=== PATIENT | female | born 1980 | race American Indian/Alaskan Native ===

== ENCOUNTER 2017-06-23 11:02 | Inpatient (IN) | payer OTHER ==
[2017-06-23] MEDS ORDERED: BICITRA PO ONE (13:58)
[2017-06-23] MEDS ORDERED: PEPCID IV ONE (13:58)
[2017-06-23] MEDS ORDERED: REGLAN IV ONE (13:58)
[2017-06-23] MEDS ORDERED: PITOCin/NS 20 UNIT/1000ML DRIP 20 UNITS/1,000 ML BAG IV SCH ×2 (14:00→17:00)
[2017-06-23] MEDS ORDERED: ANCEF/STERILE WATER 2 GM/20 ML 2 GM/20 ML SYRINGE IV NR (14:00)
--- NOTE | 2017-06-23 14:08 | History and Physical Report ---
History of Present Illness Date of examination: 06/23/17 Date of admission: 06/23/17 Chief complaint: 36 yo [id number] who walks in and says she may be in labor and she had care at "[facility]", possibly near [facility] [place] [place]. Her due date was yesterday and she has had an initial c/s for an abruption and a subsequent . No known problems, labs not available so will redraw as she is ambrosio and 4 cm dilated and appears to be in active labor at term. History of present illness: 36 yo [id number] who walks in and says she may be in labor and she had care at "[facility]", possibly near [facility] [place] [place] or at [place]. Her due date was yesterday and she has had an initial c/s for an abruption and that baby did not survive, she then had a subsequent successful . No known problems , labs not available so will redraw. She is ambrosio regularly and was 4 cm and 100% dilated and appears to be in active labor at term. She agrees to repeat c/s, however she may deliver before we can do that. OB HX G1 c/s at term for abruption, baby born alive but did not survive G2 at term, baby did well in 2006 (11 years ago) G3 this preg--term by palpation. Patient is a little difficult to communicate with and is not very forthcoming with answers but does answer some questions about medical hx and denies any problems. However, she has a hx of a abruption with and has some elevated BP here already. Past History Past Medical History: no pertinent history (she denies hypertension but is having elevated pressures and had a prior abruption). denies: heart disease, hypertension, renal disease, hepatitis, lung disease Past Surgical History: section STOREROOM CLERK History: denies: hepatitis B, HIV Family/Genetic History: none Social history: no significant social history - Obstetrical History Expected Date of Delivery: 06/22/17 Actual Gestation: 40 Week(s) 1 Day(s) : 3 Para: 2 Number of Pregnancies: 1 Number of Living Children: 1 Medications and Allergies Allergies Allergy/AdvReac Type Severity Reaction Status Date / Time No Known Allergies Allergy Unverified 06/23/17 12:22 Home Medications Medication Instructions Recorded Confirmed Last Taken Type Ferrous Gluconate [Iron 256 MG tab] 256 mg PO QDAY 06/23/17 06/23/17 06/22/17 14 :00 History Ibuprofen [Motrin 800 MG tab] 800 mg PO Q8HR PRN #30 tablet 06/23/17 Unknown Rx Lidocain2.5%/Prilocai2.5% [Emla] 5 gm TP 1XW #1 tube 06/23/17 Unknown Rx Pnv No.103/Folic/Om3s/Fish Oil 1 each PO QDAY 06/23/17 06/23/17 06/22/17 14:00 History [ Gummies] oxyCODONE /ACETAMINOPHEN [Percocet 1 - 2 tab PO Q4HR PRN #30 tab 06/23/17 Unknown Rx 5/325 mg] Active Meds: Active Medications Cefazolin Sodium (Ancef/Sterile Water 2 Gm/20 Ml) 2 gm in 20 mls @ 80 mls/hr IV PREOP NR PRN Reason: Protocol Stop: 06/23/17 23:59 Lactated Ringer's (Lactated Ringers) 1,000 mls @ 2,250 mls/hr IV PREOP JOANNA Stop: 06/24/17 14:27 Oxytocin/Sodium Chloride (Pitocin/Ns 20 Unit/1000ml Drip) 20 units in 1,000 mls @ 0 mls/hr IV TITR JOANNA PRN Reason: As Directed Review of Systems All systems: negative - Vital Signs Vital signs: Vital Signs Pulse Pulse Ox 124 H 98 06/23/17 11:28 06/23/17 11:28 Temp Pulse Resp BP Pulse Ox 98.4 F 110 H 18 142/85 92 06/23/17 12:23 06/23/17 14:07 06/23/17 12:23 06/23/17 12:23 06/23/17 14:07 - Physical Exam Breasts: Positive: deferred Cardiovascular: Regular rate Lungs: Positive: Clear to auscultation Abdomen: Positive: normal appearance (vertical skin incision), soft (term gravid uterus) Extremities: Positive: normal Deep Tendon Reflex Grade: Normal +2 - Obstetrical FHR: category 2 (some variable decelerations with contractions) Uterine Contraction Monitor Mode: External Uterine Contraction Pattern: Regular Uterine Contraction Intensity: Moderate Results Result Diagrams: 06/23/17 14:20 All other labs normal. Assessment and Plan - Patient Problems (1) Active labor at term Current Visit: Yes Status: Acute (2) Previous section Current Visit: Yes Status: Acute Plan to address problem: Repeat section
[2017-06-23] MEDS: LACTATED RINGERS 1,000 ML IV SCH ×2 (14:30→15:15)
[2017-06-23 14:49] LABS: Basophils % (Auto) 0.2 % (0.0-1.8); Hematocrit 35.1 % (30.3-42.9); Hemoglobin 10.8 gm/dl (10.1-14.3); Lymphocytes # (Auto) 0.9 K/mm3 (1.2-5.4); Lymphocytes % (Auto) 7.7 % (13.4-35.0); Mean Corpuscular HGB Conc 31 % (30-34); Mean Corpuscular Volume 76 fl (79-97); Monocytes # (Auto) 0.6 K/mm3 (0.0-0.8); Monocytes % (Auto) 4.7 % (0.0-7.3); Platelet Count 232 K/mm3 (140-440); Red Blood Count 4.63 M/mm3 (3.65-5.03); Red Cell Distribution Width 16.3 % (13.2-15.2)
[2017-06-23 14:52] LABS: Mean Corpuscular Hemoglobin 23 pg (28-32)
[2017-06-23] MEDS ORDERED: DEMEROL ONE (15:35)
[2017-06-23] MEDS ORDERED: ePHEDrine SULFATE ONE (15:53)
[2017-06-23 15:55] LABS: Bacteria,Urine 1+ /HPF (Negative); Bilirubin,Urine NEG (Negative); Blood,Urine SM (Negative); Color,Urine Yellow (Yellow); Mucus,Urine 2+ /HPF; Nitrite,Urine NEG (Negative); Urobilinogen,Urine < 2.0 mg/dL (<2.0)
[2017-06-23 16:13] LABS: Amphetamine Screen,Urine PRESUMPTIVE NEGATIVE; Benzodiazepines Screen,Urine PRESUMPTIVE NEGATIVE; Cannabinoid Screen,Urine PRESUMPTIVE NEGATIVE; Cocaine Screen,Urine PRESUMPTIVE NEGATIVE; Methadone Screen,Urine PRESUMPTIVE NEGATIVE; Opiate Screen,Urine PRESUMPTIVE NEGATIVE
[2017-06-23] MEDS ORDERED: ZOFRAN ONE (16:15)
[2017-06-23] MEDS ORDERED: NEO SYNEPHRINE/NS Syringe(OR USE) IV ONE (16:17)
[2017-06-23] MEDS ORDERED: VERSED ONE (16:27)
[2017-06-23] MEDS ORDERED: NACL 0.9% IR ONE (16:29)
[2017-06-23] MEDS ORDERED: WATER FOR IRRIG STERILE IR ONE (16:30)
--- NOTE | 2017-06-23 16:54 | Operative Report ---
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 History of a previous abruption term and a C- section for that and a subsequent successful this , delivered 11 years ago Post-operative diagnosis: Same Surgeon: Erin Pisano M.D. Funeral Location Manager: GRADY Anesthesia: Spinal EBL: 700 mL Infant: 7#8oz (3391g) male Apgars 8 and 9 Time of : 1559 Findings Normal tubes, uterus and ovaries with the bladder adherent up high on the lower uterine segment Procedure The patient was taken to the operating room and after adequate anesthesia was obtained she was placed in the supine position in left lateral tilt. Sequential compression devices were in place on both lower extremities and a Anderson catheter was placed in a sterile fashion. The abdomen was then prepped and draped in the usual fashion. Surgical time-out was done with the entire OR team attentive. A vertical incision was made through the old vertical skin incision with a scalpel and sharp dissection was carried down through all layers of the abdomen in the usual fashion. The abdomen was entered bluntly and the lower uterine segment was identified. The presenting part was palpated and a bladder flap was created with the Metzenbaum scissors. The scalpel was used to incise the uterus in a transverse fashion and this incision was extended bluntly with finger traction and the membranes were ruptured. My hand was inserted into the uterus. The vertex was grasped, rotated to an OA presentation and delivered with a combination of traction and fundal pressure. The cord was clamped and cut and a viable was suctioned and handed off to the attending NICU staff and was a 7#8oz (3391g) male Apgars 8 and 9. The placenta was removed manually, the interior of the uterus was cleansed with moist lap packs and the uterus was exteriorized. The uterine incision was closed with a double imbricating layer of 0 Vicryl suture in a running fashion. Hemostasis was adequate and the uterus was returned to the abdomen. Uterus was well contracted. The abdomen was then closed in layers: the fascia was closed with running sutures of 0 Vicryl starting at both ends in turn and tied together in the midline. The subcutaneous tissue was irrigated and then closed with several interrupted sutures of 2-0 vicryl and 3-0 vicryl and the skin was closed with a running subcuticular suture of 4-0 Vicryl. Sponge and Lap count correct X 3, estimated blood loss was 700 mL and the Anderson was draining clear urine. The patient tolerated the procedure well and was discharged to PACU in good condition.
[2017-06-23] MEDS ORDERED: MILK OF MAGNESIA PO PRN (16:56)
[2017-06-23] MEDS ORDERED: TORADOL IV PRN (16:56)
[2017-06-23] MEDS ORDERED: TYLENOL PO PRN (16:56)
[2017-06-23] MEDS ORDERED: MORPHINE IV PRN ×2 (16:56→17:07)
[2017-06-23] MEDS ORDERED: TUCKS PAD TP PRN (16:56)
[2017-06-23] MEDS ORDERED: ZOFRAN IV PRN (16:56)
[2017-06-23] MEDS ORDERED: NARCAN 0.4 MG/1 ML IV PRN (16:56)
[2017-06-23] MEDS ORDERED: LANSINOH TP PRN (16:56)
[2017-06-23] MEDS ORDERED: LACTATED RINGERS 1,000 ML ONE (16:57)
[2017-06-23] MEDS ORDERED: SODIUM CHLORIDE FLUSH SYRINGE 10 ML IV NR (17:00)
[2017-06-23] MEDS ORDERED: D5LR 1,000 ML IV SCH (17:00)
--- NOTE | 2017-06-23 17:13 | Post Anesthesia Evaluation ---
- Post Anesthesia Evaluation Patient Participated: Yes Airway Patent: Yes Stable Respiratory Function: Yes Nausea/Vomiting: No Temp > 96.8F: Yes Pain Manageable: Yes Adequeate Hydration: Yes Anesthesia Complications: No Block Receding Appropriately: Yes Patient on Ventilator: No
--- NOTE | 2017-06-23 17:13 | Anesthesia Consultation ---
Anesthesia Consult and Med Hx Date of service: 06/23/17 - Airway Anesthetic Teeth Evaluation: Good ROM Head & Neck: Adequate Mental/Hyoid Distance: Adequate Mallampati Class: Class II Intubation Access Assessment: Probably Good - Pulmonary Exam CTA: Yes - Cardiac Exam Cardiac Exam: RRR - Pre-Operative Health Status ASA Pre-Surgery Classification: ASA2 Proposed Anesthetic Plan: Spinal - Pulmonary Hx Asthma: No COPD: No Hx Pneumonia: No - Cardiovascular System Hx Hypertension: No - Central Nervous System Hx Seizures: No Hx Psychiatric Problems: No - Endocrine Hx Renal Disease: No Hx End Stage Renal Disease: No Hx Hypothyroidism: No Hx Hyperthyroidism: No - Hematic Hx Anemia: No Hx Sickle Cell Disease: No - Other Systems Hx Alcohol Use: No
--- NOTE | 2017-06-23 17:13 | Anesthesia Day of Surgery ---
Anesthesia Day of Surgery - Day of Surgery Patient Examined: Yes Patient H&P Reviewed: Yes Patient is NPO: Yes
[2017-06-23] MEDS ORDERED: ANCEF/NS 1 GM/50 ML 1 GM/50 ML BAG IV SCH (23:00)
[2017-06-23] MEDS ORDERED: ceFAZolin 1 GM in NACL 0.9% 20 ML IV SCH (23:00)
[2017-06-24 05:32] LABS: Hematocrit 28.4 % (30.3-42.9); Hemoglobin 9.2 gm/dl (10.1-14.3)
[2017-06-24] MEDS ORDERED: BOOSTRIX IM ONE (06:00)
[2017-06-24] MEDS ORDERED: ceFAZolin 1 GM in NACL 0.9% 20 ML IV ONE (08:30)
[2017-06-24] MEDS: PERCOCET 5/325 PO PRN ×2 (08:45→18:21)
[2017-06-24] MEDS: MOTRIN PO PRN ×2 (08:48→18:22)
[2017-06-24] MEDS ORDERED: Fluarix Quad 2017-2018(36 MOS+ IM ONE (12:00)
--- NOTE | 2017-06-24 17:15 | Progress Note ---
Assessment and Plan - Patient Problems (1) delivery delivered Current Visit: Yes Status: Acute Plan to address problem: nl po course, min lochia (2) Active labor at term Current Visit: Yes Status: Acute (3) Previous section Current Visit: Yes Status: Acute Subjective - Subjective Date of service: 06/24/17 Principal diagnosis: POD #1 Rep c/s Interval history: 36 yo [id number] who walks in and says she may be in labor and she had care at "[facility]", possibly near [facility] or at [place]. Her due date was yesterday and she has had an initial c/s for an abruption and that baby did not survive, she then had a subsequent successful . No known problems , labs not available so will redraw. She is ambrosio regularly and was 4 cm and 100% dilated and appears to be in active labor at term. She agrees to repeat c/s, however she may deliver before we can do that. OB HX G1 c/s at term for abruption, baby born alive but did not survive G2 at term, baby did well in 2006 (11 years ago) G3 this preg--term by palpation. Patient is a little difficult to communicate with and is not very forthcoming with answers but does answer some questions about medical hx and denies any problems. However, she has a hx of a abruption with and has some elevated BP here already. Patient reports: appetite normal, voiding normally, pain well controlled, ambulating normally : doing well Objective - Vital Signs Latest vital signs: Vital Signs Temp Pulse Resp BP BP Pulse Ox 06/24/17 13:06 97.9 F 75 18 135/82 98 06/24/17 08:56 98.5 F 94 H 18 129/80 96 06/24/17 05:07 98.6 F 98 H 20 108/66 95 06/24/17 01:10 99.2 F 92 H 20 114/68 97 06/23/17 20:57 98.1 F 85 20 110/68 100 06/23/17 18:10 98.8 F 91 H 18 113/63 06/23/17 18:00 90 27 H 107/61 96 06/23/17 17:55 98.3 F 06/23/17 17:50 105 H 21 109/60 95 06/23/17 17:45 98 H 25 H 106/57 94 06/23/17 17:40 95 H 22 108/59 96 06/23/17 17:35 96 H 29 H 111/51 95 06/23/17 17:30 95 H 24 105/55 95 06/23/17 17:25 92 H 22 104/63 97 06/23/17 17:20 98 H 23 110/55 96 06/23/17 17:15 94 H 20 100/56 96 Intake and Output 06/24/17 06/24/17 06/24/17 07:59 15:59 23:59 Intake Total 360 Output Total 600 Balance -240 Intake: Intake, Free Water 360 Output: Urine 600 Indwelling Catheter 600 Other: Total, Output Amount 600 # Voids Void 1 - Exam Breasts: Present: normal Abdomen: Present: soft, normal bowel sounds Uterus: Present: firm Extremities: Present: normal Incision: Present: normal (still bandaged, midline) - Labs Labs: Abnormal lab results 06/24/17 Range/Units 05:01 Hgb 9.2 L (10.1-14.3) gm/dl Hct 28.4 L D (30.3-42.9) %
[2017-06-25] MEDS: PERCOCET 5/325 PO PRN (00:21)
[2017-06-25] MEDS: MOTRIN PO PRN ×2 (05:33→12:15)
--- NOTE | 2017-06-25 07:53 | Discharge Summary ---
Providers - Providers Date of Admission: 06/23/17 14:09 Date of discharge: 06/25/17 (pt requests d/c today if possible) Attending physician: ALISSA SCHMIDT 06/23/17 16:56 Consult to Tool Room Machinist [CONS] Routine Reason For Exam: Primary care physician: ALISSA SCHMIDT Hospitalization Reason for admission: active labor Delivery: Procedure: repeat low transverse Episiotomy: none Laceration: none Incision: normal, dry, intact Other procedures: none complications: none Discharge diagnosis: IUP at term delivered baby: male Hospital course: pt presented to Triage in active labor Walk-in Previous c/s Uncomplicated repeat c/s Pt w/o complaint Desires d/c today if possible VSS FF below umb Lochia small Vertical incision D&I, dressing removed this AM. H&H 02/01 drop r/t blood loss from surgery Pt is asymptomatic. Doing well s/p repeat c/s P: d/c today with instructions RTO 1 week incision check Condition at discharge: Good Disposition: DC-01 TO HOME OR SELFCARE - Discharge Diagnoses (1) delivery delivered Status: Acute Comment: RTO 1 week for postop care Plan - Discharge Medications Prescriptions: Ibuprofen [Motrin 800 MG tab] 800 mg PO Q8HR PRN #30 tablet PRN Reason: Pain Lidocain2.5%/Prilocai2.5% [Emla] 5 gm TP 1XW #1 tube oxyCODONE /ACETAMINOPHEN [Percocet 5/325 mg] 1 - 2 tab PO Q4HR PRN #30 tab PRN Reason: Pain - Provider Discharge Summary Activity: routine, no sex for 6 weeks, no heavy lifting 4 weeks, no strenuous exercise Diet: routine Instructions: routine Additional instructions: [] Smoking cessation referral if applicable(refer to patient education folder for contact #) [] Refer to [facility] Booklet Call your doctor immediately for: * Fever > 100.5 * Heavy vaginal bleeding ( >1 pad per hour) * Severe persistent headache * Shortness of breath * Reddened, hot, painful area to leg or breast * Drainage or odor from incision. * Keep incision clean and dry at all times and follow doctor's instructions regarding bathing/showering - Follow up plan Follow up: ALISSA SCHMIDT MD [Primary Care Provider] - 7 Days (Congratulations! Please call [phone] to schedule your postoperative visit and your son's circumcision if desired in 1 week. Bring the EMLA cream with you to his visit. Take medications as prescribed. Call with any concerns. [facility]; [address]; [place], [address])
[2017-06-25] MEDS ORDERED: Fluarix Quad 2017-2018(36 MOS+ IM ONE (16:30)
[2017-06-25 16:48] VITALS: BP 139/79
== END 2017-06-25 17:45 | disposition home or self-care (01) | DRG 766 ==
LOC: TRG 11:02 → APU 14:09 → OB 18:50
PROVIDERS: ADMIT Obstetrics & Gynecology; ATTEND Obstetrics & Gynecology
PROC: 10D00Z1 Extraction of Products of Conception, Low, Open Approach (ICD-10-PCS; principal; 2017-06-23)
PROC: 3E0234Z Introduction of Serum, Toxoid and Vaccine into Muscle, Percutaneous Approach (ICD-10-PCS; 2017-06-25)
DX: O34.211 Maternal care for low transverse scar from previous cesarean delivery (principal); Z3A.40 40 weeks gestation of pregnancy; Z37.0 Single live birth; Z23 Encounter for immunization
CPT/HCPCS: 36415; 80307; 81001; 85014; 85018; 85025; 86592; 86706; 86762; 86850; 86900; 86901; 87806; 90471; 90686; 90715; 99211; A6250; G0008; G0463; J0690; J1885; J2175; J2250; J2370; J2405; J2590; J2765; J7120; J7121